=== PATIENT | male | born 1990 | race Caucasian/White ===

== ENCOUNTER 2016-07-24 21:33 | Emergency (ER) | payer OTHER ==
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
[2016-07-24 21:44] VITALS: TEMP 97.9
[2016-07-24] MEDS ORDERED: PROPARACAINE 0.5% 15 ML OPHT DROP OP ONE (23:01)
[2016-07-24] MEDS ORDERED: FLUORESCEIN SODIUM 1 MG STRIP OP ONE (23:01)
[2016-07-24] MEDS ORDERED: IBUPROFEN 200 MG TAB PO ONE ×2 (23:44)
[2016-07-24] MEDS ORDERED: IBUPROFEN 800 MG TAB PO ONE (23:48)
[2016-07-24 23:49] VITALS: BP 126/75; PULSE 68; RESP 16; O2SAT 94
== END 2016-07-24 23:50 | disposition home or self-care (01) ==
DX: S05.12XA Contusion of eyeball and orbital tissues, left eye, initial encounter (principal); F17.200 Nicotine dependence, unspecified, uncomplicated; Y04.0XXA Assault by unarmed brawl or fight, initial encounter; Y92.148 Other place in prison as the place of occurrence of the external cause